=== PATIENT | female | born 1985 | race Hispanic/Latino ===

== ENCOUNTER 2017-04-21 23:19 | Emergency (ER) | payer SELFPAY ==
[~2017-04-21] VITALS: Ht 165.1 cm; Wt 86.2 kg
[~2017-04-21 23:19] MED LIST: HYDR-3812 PO; IBUP-1773 PO; PNV91TAB3 PO
[2017-04-21] MEDS ORDERED: RT-ALBUTEROL/IPRATROPIUM 3 ML (DUONEB) VIAL INH ONE (23:45)
[2017-04-22] MEDS ORDERED: RX-ALBUTEROL INHALER (VENTOLIN HFA) 18 GM IH STA (00:39)
[2017-04-22] MEDS ORDERED: predniSONE 20 MG TAB PO ONE (00:45)
--- NOTE | 2017-04-22 00:56 | ED Respiratory ---
General Chief Complaint: Respiratory Problems Stated Complaint: SOA Nursing Triage Note: PT TO ED 7 W/ S.O. FOR C/O SOB ONSET YESTERDAY AFTER CLEANING. S.O. REPORTS THIS HAPPENS WHEN SHE CLEANS OR IS AROUND POLLEN. NO OTHER C/O VOICED Source: patient Exam Limitations: language barrier History of Present Illness Time seen by provider: 00:27 Initial Comments Here with report of shortness of air that started yesterday after cleaning. She does have this occasionally occur with irritants such as pollen or cleaning agents. Denies fever or chills. Denies vomiting or chest pain. Timing/Duration: yesterday, getting worse Severity: moderate Prior Episodes/Possible Cause: allergen exposure, irritant gases exposure Modifying Factors: Worse With Activity, Improves With Rest Associated Symptoms: No chest pain/soreness, cough, No fever/chills, nasal congestion, shortness of breath, wheezing Allergies and Home Medications Allergies Coded Allergies: No Known Drug Allergies (Unverified , 05/18/16) Home Medications Hydrocodone/Acetaminophen 1 Each Tablet, 1-2 TAB PO Q4H PRN for PAIN, #30 Ref 0 Prescribed by: JAMILA GRIJALVA on 05/19/16 0846 Ibuprofen 600 Mg Tablet, 600 MG PO Q6H PRN for PAIN, #60 Ref 0 Prescribed by: JAMILA GRIJALVA on 05/19/16 0846 Pnv95/Ferrous Fumarate/FA 1 Each Tablet, 1 EACH PO DAILY, (Reported) Constitutional: see HPI, No chills, No fever EENTM: no symptoms reported Respiratory: cough, short of breath, wheezing Cardiovascular: no symptoms reported Gastrointestinal: no symptoms reported Musculoskeletal: no symptoms reported Psychiatric/Neurological: No Symptoms Reported Past Qrmlpkn-Jizhmv-Zxnekq Hx Patient Social History Alcohol Use: Denies Use Recreational Drug Use: No Smoking Status: Never a Smoker Recent Foreign Travel: No Contact w/Someone Who Travel: No Recent Infectious Disease Expo: No Recent Hopitalizations: No Immunizations Up To Date Tetanus Booster (TDap): Less than 5yrs PED Vaccines UTD: No Seasonal Allergies Seasonal Allergies: No Surgeries HX Surgeries: No Respiratory Hx Respiratory Disorders: Yes Respiratory Disorders: Asthma Cardiovascular Hx Cardiac Disorders: No Neurological Hx Neurological Disorders: No Reproductive System Hx Reproductive Disorders: No Sexually Transmitted Disease: No HIV/AIDS: No Genitourinary Hx Genitourinary Disorders: No Gastrointestinal Hx Gastrointestinal Disorders: No Musculoskeletal Hx Musculoskeletal Disorders: No Endocrine Hx Endocrine Disorders: No HEENT HX ENT Disorders: No Cancer Hx Cancer: No Psychosocial Hx Psychiatric Problems: No Integumentary HX Skin/Integumentary Disorder: No Blood Transfusions Hx Blood Disorders: No Adverse Reaction to a Blood Tr: No Reviewed Nursing Assessment Reviewed/Agree w Nursing PMH: Yes Family Medical History Significant Family History: No Pertinent Family Hx Family Medial History: Patient reports no known family medical history. Physical Exam Vital Signs Vital Sign - Last 12Hours 04/21/17 23:24 Temp 98.6 Pulse 113 Resp 20 Pulse Ox 96 O2 Delivery Room Air Capillary Refill : Less Than 3 Seconds General Appearance: WD/WN, no apparent distress HEENT: PERRL/EOMI, pharyngeal erythema (mild), other (moderate bilateral nasal congestion) Neck: full range of motion, supple Respiratory: no respiratory distress, no accessory muscle use, wheezing (few scattered) Cardiovascular: regular rate, rhythm, no murmur Gastrointestinal: non tender, soft Neurologic/Psychiatric: alert, oriented x 3 Skin: normal color, warm/dry Progress/Results/Core Measures Results/Orders My Orders Orders - KEI CORBIN MD Albuterol/Ipra Inhalation Soln (Duoneb I (04/21/17 23:45) Svn Sm Volume Nebulizer Rt-Rfs (04/21/17 23:33) Prednisone Tablet (Deltasone Tablet) (04/22/17 00:45) Rx-Albuterol Inhaler (Rx-Ventolin Hfa) (04/22/17 00:39) Medications Given in ED Current Medications Medications Dose Ordered Sig/Vandana Route Start Time Stop Time Status Last Admin Dose Admin Albuterol/ Ipratropium 3 ml ONCE ONCE INH 04/21/17 23:45 04/21/17 23:46 DC 04/21/17 23:57 3 ML Vital Signs/I&O Vital Sign - Last 12Hours 04/21/17 04/22/17 23:24 00:01 Temp 98.6 Pulse 113 Resp 20 B/P (MAP) Pulse Ox 96 95 O2 Delivery Room Air Room Air Progress Note : Progress Note Seen and evaluated. Duo neb ordered. This did markedly improve her symptoms. Prednisone 40 mg by mouth given. Albuterol inhaler go pack given. Discharged home with return precautions. Patient verbalize understanding instructions and agreement with plan. Departure Impression Impression: Primary Impression: Allergic bronchitis Qualified Codes: J45.20 - Mild intermittent asthma, uncomplicated Additional Impression: Seasonal allergies Qualified Codes: J30.2 - Other seasonal allergic rhinitis Disposition: HOME, SELF-CARE Condition: Improved Departure-Patient Inst. Decision time for Depature: 00:58 Referrals: JAMILA GRIJALVA MD (PCP/Family) Primary Care Physician Patient Instructions: Asthma, Adult (DC) Add. Discharge Instructions: All discharge instructions reviewed with patient and/or family. Voiced understanding. Take medications as directed. You may take Claritin or the generic loratadine 1 tablet daily as needed for allergy symptoms. You may use albuterol inhaler 2 puffs every 4 hours as needed for wheezing. Follow-up with your DrLori in a few days for recheck. Return for worsening, fever, vomiting, weakness, breathing problems or other concerns as needed. Scripts Prednisone (Prednisone) 20 Mg Tab 40 MG PO DAILY, #8 TAB 0 Refills Prov: KEI CORBIN MD 04/22/17 KEI CORBIN MD Apr 22, 2017 00:56
[2017-04-22] MEDS ORDERED: PRD20T PO (00:59)
[2017-04-22 01:05] VITALS: BP 131/82
== END 2017-04-22 01:05 | disposition home or self-care (01) ==
LOC: EDUNIT# 23:19 → ER 23:23
DX: J45.909 Unspecified asthma, uncomplicated (principal)
CPT/HCPCS: 94640; 99283

== ENCOUNTER → 2017-12-25 | Outpatient (CLI) | payer SELFPAY ==
[~2017-12-25] MED LIST changes: +ACHD5005 PO; -HYDR-3812 PO; +PRD20T PO
--- NOTE | 2017-12-25 17:48 | Diagnostic Imaging Report ---
PROCEDURE: US OB SINGLE FETUS <14 WKS. TECHNIQUE: Multiple real-time grayscale images were obtained over the gravid uterus in various projections. INDICATION: dating. There is an intrauterine gestational sac containing a pole. [place]-rump length measurement is approximately 5.3 cm consistent with 12 weeks 0 day gestation. heart rate was recorded at 155 beats per minute. No perigestational sac hemorrhage is detected. Ovaries were obscured by bowel gas. IMPRESSION: Single live IUP approximately 12 weeks 0 day gestational age. The estimated date of confinement sonographically is 07/09/2018. Dictated by: Dictated on workstation # [id number]
== END ==
LOC: RAD 15:40
PROVIDERS: ATTEND Family Medicine
DX: Z34.81 Encounter for supervision of other normal pregnancy, first trimester (principal); Z3A.12 12 weeks gestation of pregnancy
CPT/HCPCS: 76801

== ENCOUNTER → 2018-02-28 | Outpatient (CLI) | payer OTHER ==
[~2018-02-28] MED LIST changes: +BECL8.7A7 IH; +FEXO-46 PO; +PRD10T PO; +RT-ALBUINH IH
--- NOTE | 2018-02-28 18:06 | Diagnostic Imaging Report ---
INDICATION: Second trimester care. TECHNIQUE: Multiple real-time grayscale images were obtained over the gravid uterus. COMPARISON: None. FINDINGS: The patient's gestational age based on prior ultrasound is 21 weeks and 2 days. Today's biometrical measurements correspond to 21 weeks and 0 days. This is compatible with appropriate interval growth when compared to the prior exam. The heart rate is appropriate at 139 beats per minute. The placenta is located posteriorly without evidence of a previa. Amniotic fluid volume appears appropriate. The intracranial contents appear unremarkable. There is no ventriculomegaly. Four-chamber view of the heart appears normal. Stomach bubble demonstrated. There is no evidence of hydronephrosis. Bladder is unremarkable. There is a three-vessel cord with a normal cord insertion. There was limited visualization of the spine due to current positioning. IMPRESSION: 1. Single live intrauterine gestation demonstrating appropriate interval growth from initial ultrasound. Cardiac motion and the amniotic fluid index are appropriate. The placenta is located posteriorly without evidence of a previa. Today's anatomic survey is unremarkable. It should, however, be noted that there was incomplete evaluation of the spine due to the current positioning. Biometrical measurements are as follows: Biparietal 4.71 cm, age 20 weeks 2 days. Head circumference 18.02 cm, age 20 weeks 4 days. Abdominal circumference 17.05 cm, age 22 weeks 1 days. Femur length 3.43 cm, age 20 weeks 6 days. Sonographic estimate age: 21 weeks 0 days. Sonographic estimated date of delivery: 07/11/2018. Estimated Weight: 415 gm (+/- 61 gm). LMP percentile: 46%. heart rate: 139 beats per minute. number: 1 of 1. Dictated by: Dictated on workstation # [id number]
== END ==
LOC: RAD 17:18
PROVIDERS: ATTEND Family Medicine
DX: Z34.92 Encounter for supervision of normal pregnancy, unspecified, second trimester (principal); Z3A.21 21 weeks gestation of pregnancy
CPT/HCPCS: 76805

== ENCOUNTER 2018-03-19 20:53 | Emergency (ER) | payer OTHER ==
[~2018-03-19] VITALS: Ht 167.6 cm; Wt 81.6 kg
[~2018-03-19 20:53] MED LIST changes: -BECL8.7A7 IH; -FEXO-46 PO; -PRD10T PO; -RT-ALBUINH IH
[2018-03-19] MEDS ORDERED: methylPREDNISolone 125 MG (Solu-MEDROL) VIAL IV STA (21:28)
[2018-03-19] MEDS ORDERED: DEXAMETHASONE 4 MG/ML SDV (DECADRON) IH ONE (21:30)
[2018-03-19] MEDS ORDERED: RT-ALBUTEROL/IPRATROPIUM 3 ML (DUONEB) VIAL INH ONE (21:30)
[2018-03-19] MEDS ORDERED: BECL8.7A7 IH (21:34)
[2018-03-19] MEDS ORDERED: FEXO-46 PO (21:34)
[2018-03-19] MEDS ORDERED: RT-ALBUINH IH (21:34)
--- NOTE | 2018-03-19 21:50 | ED Respiratory ---
General Chief Complaint: Respiratory Problems Stated Complaint: TROUBLE BREATHING Nursing Triage Note: pt presents to ed with complaints of increased soa starting at 1000 today. Pt reports she was seen at [facility] today and prescribed 2 inhalers and allergy medication Source: motor vehicle parts interpreter (MALE S.O. IS PROVIDER RELATIONS CONSULTANT) Exam Limitations: language barrier (PT DOES NOT SPEAK ETHIOPIAN), other History of Present Illness Date Seen by Provider: March 19, 2018 Time Seen by Provider: 21:25 Initial Comments PT ARRIVES VIA POV FROM HOME C/O SHORTNESS OF BREATH SINCE 10:00 AM TODAY, BUT HAS HAD PROBLEM FOR 1-2 WEEKS WAS SEEN AT [facility] LAST WEEK FOR THIS PROBLEM AND WAS PRESCRIBED STEROIDS AND WAS DOING WELL FOR 3-4 DAYS, THEN SYMPTOMS RETURNED WENT TO [facility] THIS EVENING FOR THIS PROBLEM AND WAS PRESCRIBED ALBUTEROL INHALER AND QVAR INHALER--NO SPACERS USED THESE AT 1800 TONIGHT WITHOUT IMPROVEMENT HAS HAD SLIGHT, OCCASIONAL NON-PRODUCTIVE COUGH HAS SLIGHT CHEST PAIN NO FEVER/SWEATS/CHILLS NO SWELLING IN LEGS/ FEET OR PAIN IN CALVES PT IS APPROXIMATELY 24 WEEKS --STATES EDC IS 07/09/18 NO PROBLEMS WITH THIS OTHERWISE PT IS AB0 PT IS NON-SMOKER AND NO SECOND HAND SMOKE MALE S.O. STATES THAT SHE WAS DX WITH ASTHMA 3-4 YEARS AGO IN [place], BUT HAS NOT BEEN ON MEDICATION FOR IT. PCP: DR DAINA AT [facility] Allergies and Home Medications Allergies Coded Allergies: No Known Drug Allergies (Unverified , 05/18/16) Home Medications Albuterol Sulfate 1 Puff Puff, 2 PUFF IH Q4H, (Reported) 1 PUFF = 90 MCG Hydrocodone Bit/Acetaminophen 1 Each Tablet, 1-2 TAB PO Q4H PRN for PAIN Prescribed by: JAMILA GRIJALVA on 05/19/16 0846 Ibuprofen 600 Mg Tablet, 600 MG PO Q6H PRN for PAIN Prescribed by: JAMILA GRIJALVA on 05/19/16 0846 Pnv95/Ferrous Fumarate/FA 1 Each Tablet, 1 EACH PO DAILY, (Reported) Prednisone 20 Mg Tab, 40 MG PO DAILY Prescribed by: KEI CORBIN on 04/22/17 0059 Prednisone 10 Mg Tab, 40 MG PO DAILY Prescribed by: BRYN ORDAZ on 03/19/18 8538 Patient Home Medication List Home Medication List Reviewed: Yes Review of Systems Constitutional: no symptoms reported EENTM: no symptoms reported Respiratory: see HPI, cough, short of breath Cardiovascular: see HPI, chest pain Gastrointestinal: no symptoms reported Genitourinary: no symptoms reported : Yes Expected Date of Delivery: Jul 09, 2018 Musculoskeletal: no symptoms reported Skin: no symptoms reported Psychiatric/Neurological: No Symptoms Reported Hematologic/Lymphatic: No Symptoms Reported Immunological/Allergic: see HPI (SEASONAL ALLERGIES) Past Elpdpia-Ujummu-Cvkgao Hx Patient Social History Alcohol Use: Denies Use Recreational Drug Use: No Smoking Status: Never a Smoker Recent Foreign Travel: No Contact w/Someone Who Travel: No Recent Infectious Disease Expo: No Recent Hopitalizations: No Physical Abuse: No Sexual Abuse: No Mistreated: No Fear: No Immunizations Up To Date Tetanus Booster (TDap): Less than 5yrs PED Vaccines UTD: No Seasonal Allergies Seasonal Allergies: No Past Medical History Surgeries: No Respiratory: Yes Asthma Currently Using CPAP: No Currently Using BIPAP: No Cardiac: No Neurological: No Hx : 4 Hx Para: 3 Hx Total # of Abortions (Sp): 0 Reproductive Disorders: No Sexually Transmitted Disease: No HIV/AIDS: No Genitourinary: No Gastrointestinal: No Musculoskeletal: No Endocrine: No HEENT: No Cancer: No Psychosocial: No Nursing Suicide Risk Score: 0 Integumentary: No Blood Disorders: No Adverse Reaction/Blood Tranf: No Family Medical History Patient reports no known family medical history. No Pertinent Family Hx Physical Exam Vital Signs Vital Signs - First Documented 03/19/18 03/19/18 21:26 21:40 Temp 97.2 Pulse 112 Resp 20 B/P (MAP) 121/72 (88) Pulse Ox 94 O2 Delivery Nasal Cannula O2 Flow Rate 2.00 Capillary Refill : Less Than 3 Seconds General Appearance: WD/WN, no apparent distress, other (PT SMILING, SITTING QUIETLY, DOES NOT APPEAR TO BE IN ANY DISCOMFORT OR DISTRESS) HEENT: PERRL/EOMI, normal ENT inspection, TMs normal, pharynx normal Neck: non-tender, full range of motion, supple, normal inspection Respiratory: chest non-tender, no respiratory distress, no accessory muscle use , wheezing (FAINT DIFFUSE EXPIRATORY WHEEZING BILATERALLY) Cardiovascular: normal peripheral pulses, regular rate, rhythm, no edema, no JVD, no murmur Gastrointestinal: normal bowel sounds, non tender, soft, other (GRAVID UTERUS 4 FB'S ABOVE UMBILICUS) Extremities: normal range of motion, non-tender, normal inspection, no pedal edema, no calf tenderness, normal capillary refill Neurologic/Psychiatric: sales agent II-XII nml as tested, no motor/sensory deficits, alert, normal mood/affect, oriented x 3 Skin: normal color, warm/dry; No rash Progress/Results/Core Measures Suspected Sepsis Recent Fever Within 48 Hours: No Infection Criteria Present: None New/Unexplained Altered Menta: No Sepsis Screen: No Definite Risk SIRS Temperature:97.2 Pulse: 112 Respiratory Rate: 20 Laboratory Tests 03/19/18 21:42: White Blood Count 17.3H Blood Pressure 121 /72 Mean: 88 Laboratory Tests 03/19/18 21:42: Creatinine 0.50L, INR Comment 1.0, Platelet Count 231 Results/Orders Lab Results Laboratory Tests Test 03/19/18 21:42 Range/Units White Blood Count 17.3 H 4.3-11.0 10^3/uL Red Blood Count 4.62 4.35-5.85 10^6/uL Hemoglobin 13.3 11.5-16.0 G/DL Hematocrit 38 35-52 % Mean Corpuscular Volume 82 80-99 FL Mean Corpuscular Hemoglobin 29 25-34 PG Mean Corpuscular Hemoglobin Concent 35 32-36 G/DL Red Cell Distribution Width 12.7 10.0-14.5 % Platelet Count 231 130-400 10^3/uL Mean Platelet Volume 11.0 H 7.4-10.4 FL Neutrophils (%) (Auto) 83 H 42-75 % Lymphocytes (%) (Auto) 10 L 12-44 % Monocytes (%) (Auto) 4 0-12 % Eosinophils (%) (Auto) 3 0-10 % Basophils (%) (Auto) 0 0-10 % Neutrophils # (Auto) 14.4 H 1.8-7.8 X 10^3 Lymphocytes # (Auto) 1.7 1.0-4.0 X 10^3 Monocytes # (Auto) 0.6 0.0-1.0 X 10^3 Eosinophils # (Auto) 0.6 H 0.0-0.3 10^3/uL Basophils # (Auto) 0.0 0.0-0.1 10^3/uL Neutrophils % (Manual) 71 % Lymphocytes % (Manual) 20 % Monocytes % (Manual) 3 % Eosinophils % (Manual) 2 % Basophils % (Manual) 0 % Band Neutrophils 4 % Blood Morphology Comment NORMAL Prothrombin Time 13.5 12.2-14.7 SEC INR Comment 1.0 0.8-1.4 Activated Partial Thromboplast Time 28 24-35 SEC Sodium Level 138 135-145 MMOL/L Potassium Level 3.5 L 3.6-5.0 MMOL/L Chloride Level 107 98-107 MMOL/L Carbon Dioxide Level 18 L 21-32 MMOL/L Anion Gap 13 5-14 MMOL/L Blood Urea Nitrogen 6 L 7-18 MG/DL Creatinine 0.50 L 0.60-1.30 MG/DL Estimat Glomerular Filtration Rate > 60 BUN/Creatinine Ratio 12 Glucose Level 93 70-105 MG/DL Calcium Level 9.1 8.5-10.1 MG/DL Troponin I < 0.30 <0.30 NG/ML B-Type Natriuretic Peptide < 10.0 <100.0 PG/ML My Orders Orders - BRYN ORDAZ DO Saline Lock/Iv-Start (03/19/18 21:28) O2 (03/19/18 21:28) Monitor-Rhythm Ecg Trace Only (03/19/18 21:28) Basic Metabolic Panel (03/19/18 21:28) BNP (03/19/18 21:28) Cbc With Automated Diff (03/19/18 21:28) Protime With Inr (03/19/18 21:28) Partial Thromboplastin Time (03/19/18 21:28) Troponin I (03/19/18 21:28) Albuterol/Ipra Inhalation Soln (Duoneb I (03/19/18 21:30) Dexamethasone Injection (Decadron Inject (03/19/18 21:30) Methylprednisolone Sod Succ (Solu-Medrol (03/19/18 21:28) Svn Small Volume Nebulizer (03/19/18 21:28) Ekg Tracing (03/19/18 21:28) Heart Tones (03/19/18 21:44) Manual Differential (03/19/18 21:42) Medications Given in ED Current Medications Medications Dose Ordered Sig/Vandana Route Start Time Stop Time Status Last Admin Dose Admin Albuterol/ Ipratropium 3 ml ONCE ONCE INH 03/19/18 21:30 03/19/18 21:31 DC 03/19/18 22:00 3 ML Dexamethasone Sodium Phosphate 20 mg ONCE ONCE IH 03/19/18 21:30 03/19/18 21:31 DC 03/19/18 22:00 20 MG Vital Signs/I&O 03/19/18 03/19/18 03/19/18 21:26 21:40 22:00 Temp 97.2 Pulse 112 Resp 20 B/P (MAP) 121/72 (88) Pulse Ox 94 96 95 O2 Delivery Nasal Cannula Nasal Cannula O2 Flow Rate 2.00 2.00 Capillary Refill : Less Than 3 Seconds Blood Pressure Mean: 88 Progress Note : Progress Note FHR--140'S -160--WITH AVERAGE OF 150 WHEEZING RESOLVED WITH NEB TREATMENT AND PT STATES SHE FEELS BETTER RT STAFF DID MUCH TEACHING ON INHALER USE AND GAVE SPACER TO PT AND INSTRUCTED ON USE PT HAS NOT BEEN USING INHALER CORRECTLY--PT HAS NOT BEEN FULLY PUSHING DOWN ON INHALER, AND ESSENTIALLY HAS NOT BEEN GETTING ANY MEDICATION WITH HER ATTEMPTS TO USE THE DEVICES. PT AND MALE S.O. STATE THEY FEEL COMFORTABLE ON PROPER USE OF DEVICES PRIOR TO DISMISSAL ECG Initial ECG Impression Date: March 19, 2018 Initial ECG Impression Time: 21:38 Initial ECG Rate: 103 Initial ECG Rhythm: Normal Sinus (LAFB) Initial ECG Comparisson: No Previous ECG Available Departure Impression Primary Impression: Asthma affecting in second trimester Disposition: 01 HOME, SELF-CARE Condition: Improved Departure-Patient Inst. Referrals: SUNDAY DIANA MD (PCP/Family) Primary Care Physician Patient Instructions: Asthma, Adult (DC) Add. Discharge Instructions: USE ALBUTEROL INHALER 2 PUFFS EVERY 4 HOURS NEEDED FOR BREATHING USE QVAR TWICE A DAY EVERY DAY USE SPACER AT ALL TIMES, WHEN USING INHALERS FOLLOW UP WITH DR. DIANA IN 1-2 DAYS FOR FURTHER RETURN TO ER IF WORSE All discharge instructions reviewed with patient and/or family. Voiced understanding. Scripts Prednisone (Prednisone) 10 Mg Tab 40 MG PO DAILY, #12 TAB Prov: BRYN ORDAZ DO 03/19/18 BRYN ORDAZ DO March 19, 2018 21:49
[2018-03-19 21:53] LABS: BASOPHILS % (AUTO) 0 % (0-10); EOSINOPHILS # (AUTO) 0.6 10^3/uL (0.0-0.3); EOSINOPHILS % (AUTO) 3 % (0-10); HEMATOCRIT 38 % (35-52); HEMOGLOBIN 13.3 G/DL (11.5-16.0); LYMPHOCYTES # (AUTO) 1.7 X 10^3 (1.0-4.0); LYMPHOCYTES % (AUTO) 10 % (12-44); MEAN CORPUSCULAR HEMOGLOBIN 29 PG (25-34); MEAN CORPUSCULAR HGB CONC 35 G/DL (32-36); MEAN CORPUSCULAR VOLUME 82 FL (80-99); MONOCYTES # (AUTO) 0.6 X 10^3 (0.0-1.0); MONOCYTES % (AUTO) 4 % (0-12); NEUTROPHILS # (AUTO) 14.4 X 10^3 (1.8-7.8); NEUTROPHILS % (AUTO) 83 % (42-75); PLATELET COUNT 231 10^3/uL (130-400); RED BLOOD COUNT 4.62 10^6/uL (4.35-5.85); RED CELL DISTRIBUTION WIDTH 12.7 % (10.0-14.5); WHITE BLOOD COUNT 17.3 10^3/uL (4.3-11.0)
[2018-03-19 22:02] LABS: PROTHROMBIN TIME PATIENT 13.5 SEC (12.2-14.7)
[2018-03-19 22:06] LABS: BUN/CREATININE RATIO 12; CALCIUM 9.1 MG/DL (8.5-10.1); CARBON DIOXIDE 18 MMOL/L (21-32); CHLORIDE 107 MMOL/L (98-107); GFR ESTIMATED > 60; GLUCOSE 93 MG/DL (70-105); POTASSIUM 3.5 MMOL/L (3.6-5.0); SODIUM 138 MMOL/L (135-145)
[2018-03-19 22:14] LABS: BAND NEUTROPHILS 4 %; BASOPHILS % (MANUAL) 0 %; EOSINOPHILS % (MANUAL) 2 %; LYMPHOCYTES % (MANUAL) 20 %; MONOCYTES % (MANUAL) 3 %; NEUTROPHILS % (MANUAL) 71 %
[2018-03-19 22:15] LABS: RBC MORPH NORMAL
[2018-03-19] MEDS ORDERED: PRD10T PO (22:28)
[2018-03-19 22:45] VITALS: BP 129/65
--- OUTSIDE RECORDS SUMMARY | 2018-03-19 23:05 | XMS REPORT | Continuity of Care Document ---
Author Author [facility] Organization [facility] Address Unknown Phone Unavailable Allergies Active Description Code Type Severity Reaction Onset Reported/Identified Relationship to Patient Clinical Status Yes No Known Drug Allergies [id number] Drug Allergy Unknown N/A 05/18/2016 Medications There is no data. Problems Date Dx Coded Attending Type Code Diagnosis Diagnosed By 12/07/2015 CLARISA KATHRYN L INDUCTION FURNACE OPERATOR Ot O99.89 12/07/2015 CLARISA KATHRYN L INDUCTION FURNACE OPERATOR Ot R10.9 12/07/2015 CLARISA, KATHRYN L INDUCTION FURNACE OPERATOR Ot Z3A.00 12/29/2015 GORGE COMBS A INDUCTION FURNACE OPERATOR Ot Z34.82 12/29/2015 HOLLY COMBSY A INDUCTION FURNACE OPERATOR Ot Z36 01/05/2016 MCKENNA, KATHRYN L INDUCTION FURNACE OPERATOR Ot O99.89 01/05/2016 MCKENNA, KATHRYN L INDUCTION FURNACE OPERATOR Ot R10.9 01/05/2016 MCKENNA, KATHRYN L INDUCTION FURNACE OPERATOR Ot Z3A.00 01/05/2016 MIROSLAVA COMBSSAY A INDUCTION FURNACE OPERATOR Ot Z34.82 01/05/2016 MIROSLAVA COMBSSAY A INDUCTION FURNACE OPERATOR Ot Z36 01/05/2016 MCKENNA, KATHRYN L INDUCTION FURNACE OPERATOR Ot O99.89 01/05/2016 MCKENNA, KATHRYN L INDUCTION FURNACE OPERATOR Ot R10.9 01/05/2016 MCKENNA, KATHRYN L INDUCTION FURNACE OPERATOR Ot Z3A.00 01/05/2016 MIROSLAVA COMBSSAY A INDUCTION FURNACE OPERATOR Ot Z34.82 01/05/2016 MIROSLAVA COMBSSAY A INDUCTION FURNACE OPERATOR Ot Z36 01/05/2016 MCKENNA, KATHRYN L INDUCTION FURNACE OPERATOR Ot O99.89 01/05/2016 MCKENNA, KATHRYN L INDUCTION FURNACE OPERATOR Ot R10.9 01/05/2016 MCKENNA, KATHRYN L INDUCTION FURNACE OPERATOR Ot Z3A.00 01/06/2016 GORGE COMBS A INDUCTION FURNACE OPERATOR Ot E07.89 01/06/2016 GORGE COMBS INDUCTION FURNACE OPERATOR Ot R79.89 04/04/2016 CLARISA KATHRYN L INDUCTION FURNACE OPERATOR Ot O99.89 OTH DISEASES AND CONDITIONS COMPL PREG/C 04/04/2016 KATHRYN MCKENNA INDUCTION FURNACE OPERATOR Ot R10.9 UNSPECIFIED ABDOMINAL PAIN 04/04/2016 CLARISA KATHRYN L INDUCTION FURNACE OPERATOR Ot Z3A.00 WEEKS OF GESTATION OF NOT SPEC 04/04/2016 GORGE COMBS A INDUCTION FURNACE OPERATOR Ot Z34.82 ENCOUNTER FOR SUPRVSN OF NORMAL PREGNANC 04/04/2016 GORGE COMBS INDUCTION FURNACE OPERATOR Ot Z36 ENCOUNTER FOR SCREENING OF MOT 04/04/2016 GORGE COMBS INDUCTION FURNACE OPERATOR Ot E07.89 OTHER SPECIFIED DISORDERS OF THYROID 04/04/2016 GORGE COMBS A INDUCTION FURNACE OPERATOR Ot R79.89 OTHER SPECIFIED ABNORMAL FINDINGS OF BLO 04/04/2016 GORGE COMBS INDUCTION FURNACE OPERATOR Ot Z34.82 ENCOUNTER FOR SUPRVSN OF NORMAL PREGNANC 04/04/2016 GORGE COMBS INDUCTION FURNACE OPERATOR Ot Z36 ENCOUNTER FOR SCREENING OF MOT 04/04/2016 GORGE COMBS INDUCTION FURNACE OPERATOR Ot E07.89 OTHER SPECIFIED DISORDERS OF THYROID 04/04/2016 GORGE COMBS A INDUCTION FURNACE OPERATOR Ot R79.89 OTHER SPECIFIED ABNORMAL FINDINGS OF BLO 05/19/2016 CLARISA KATHRYN L INDUCTION FURNACE OPERATOR Ot O99.89 OTH DISEASES AND CONDITIONS COMPL PREG/C 05/19/2016 KATHRYN MCKENNA INDUCTION FURNACE OPERATOR Ot R10.9 UNSPECIFIED ABDOMINAL PAIN 05/19/2016 KATHRYN MCKENNA INDUCTION FURNACE OPERATOR Ot Z3A.00 WEEKS OF GESTATION OF NOT SPEC 05/19/2016 GORGE COMBS INDUCTION FURNACE OPERATOR Ot Z34.82 ENCOUNTER FOR SUPRVSN OF NORMAL PREGNANC 05/19/2016 GORGE COMBS A INDUCTION FURNACE OPERATOR Ot Z36 ENCOUNTER FOR SCREENING OF MOT 05/19/2016 GORGE COMBS A INDUCTION FURNACE OPERATOR Ot E07.89 OTHER SPECIFIED DISORDERS OF THYROID 05/19/2016 GORGE COMBS A INDUCTION FURNACE OPERATOR Ot R79.89 OTHER SPECIFIED ABNORMAL FINDINGS OF BLO 05/19/2016 RUDI CHILDS, JAMILA Hansen Ot O70.1 SECOND DEGREE PERINEAL LACERATION DURING 05/19/2016 RUDI CHILDS, JAMILA Hansen Ot Z37.0 SINGLE LIVE 05/19/2016 RUDI CHILDS, JAMILA Hansen Ot Z3A.39 39 WEEKS GESTATION OF 07/24/2016 CLARISA KATHRYN L INDUCTION FURNACE OPERATOR Ot O99.89 OTH DISEASES AND CONDITIONS COMPL PREG/C 07/24/2016 KATHRYN MCKENNA L INDUCTION FURNACE OPERATOR Ot R10.9 UNSPECIFIED ABDOMINAL PAIN 07/24/2016 KATHRYN MCKENNA INDUCTION FURNACE OPERATOR Ot Z3A.00 WEEKS OF GESTATION OF NOT SPEC 07/24/2016 GORGE COMBS INDUCTION FURNACE OPERATOR Ot Z34.82 ENCOUNTER FOR SUPRVSN OF NORMAL PREGNANC 07/24/2016 GORGE COMBS INDUCTION FURNACE OPERATOR Ot Z36 ENCOUNTER FOR SCREENING OF MOT 07/24/2016 GORGE COMBS A INDUCTION FURNACE OPERATOR Ot E07.89 OTHER SPECIFIED DISORDERS OF THYROID 07/24/2016 GORGE COMBS A INDUCTION FURNACE OPERATOR Ot R79.89 OTHER SPECIFIED ABNORMAL FINDINGS OF BLO 04/22/2017 KEI CORBIN MD, Ot J45.909 UNSPECIFIED ASTHMA, UNCOMPLICATED 04/22/2017 KEI CORBIN MD Ot R06.02 SHORTNESS OF BREATH 04/22/2017 KATHRYN MCKENNA INDUCTION FURNACE OPERATOR Ot O99.89 OTH DISEASES AND CONDITIONS COMPL PREG/C 04/22/2017 KATHRYN MCKENNA INDUCTION FURNACE OPERATOR Ot R10.9 UNSPECIFIED ABDOMINAL PAIN 04/22/2017 KATHRYN MCKENNA INDUCTION FURNACE OPERATOR Ot Z3A.00 WEEKS OF GESTATION OF NOT SPEC 04/22/2017 GORGE COMBS INDUCTION FURNACE OPERATOR Ot Z34.82 ENCOUNTER FOR SUPRVSN OF NORMAL PREGNANC 04/22/2017 GORGE COMBS INDUCTION FURNACE OPERATOR Ot Z36 ENCOUNTER FOR SCREENING OF MOT 04/22/2017 GORGE COMBS INDUCTION FURNACE OPERATOR Ot E07.89 OTHER SPECIFIED DISORDERS OF THYROID 04/22/2017 GORGE COMBS INDUCTION FURNACE OPERATOR Ot R79.89 OTHER SPECIFIED ABNORMAL FINDINGS OF BLO 04/23/2017 KEI CORBIN MD, Ot J45.909 UNSPECIFIED ASTHMA, UNCOMPLICATED 04/23/2017 KEI CORBIN MD Ot R06.02 SHORTNESS OF BREATH 12/25/2017 KATHRYN MCKENNA L INDUCTION FURNACE OPERATOR Ot O99.89 OTH DISEASES AND CONDITIONS COMPL PREG/C 12/25/2017 KATHRYN MCKENNA INDUCTION FURNACE OPERATOR Ot R10.9 UNSPECIFIED ABDOMINAL PAIN 12/25/2017 KATHRYN MCKENNA INDUCTION FURNACE OPERATOR Ot Z3A.00 WEEKS OF GESTATION OF NOT SPEC 12/25/2017 GORGE COMBS INDUCTION FURNACE OPERATOR Ot Z34.82 ENCOUNTER FOR SUPRVSN OF NORMAL PREGNANC 12/25/2017 GORGE COMBS INDUCTION FURNACE OPERATOR Ot Z36 ENCOUNTER FOR SCREENING OF MOT 12/25/2017 GORGE COMBS INDUCTION FURNACE OPERATOR Ot E07.89 OTHER SPECIFIED DISORDERS OF THYROID 12/25/2017 GORGE COMBS INDUCTION FURNACE OPERATOR Ot R79.89 OTHER SPECIFIED ABNORMAL FINDINGS OF BLO 12/26/2017 DIANA MD Ot Z34.81 ENCOUNTER FOR SUPRVSN OF NORMAL PREGNANC 12/26/2017 DIANA MD Ot Z3A.12 12 WEEKS GESTATION OF 02/15/2018 KATHRYN MCKENNA INDUCTION FURNACE OPERATOR Ot O99.89 OTH DISEASES AND CONDITIONS COMPL PREG/C 02/15/2018 KATHRYN MCKENNA INDUCTION FURNACE OPERATOR Ot R10.9 UNSPECIFIED ABDOMINAL PAIN 02/15/2018 KATHRYN MCKENNA INDUCTION FURNACE OPERATOR Ot Z3A.00 WEEKS OF GESTATION OF NOT SPEC 02/15/2018 GORGE COMBS INDUCTION FURNACE OPERATOR Ot Z34.82 ENCOUNTER FOR SUPRVSN OF NORMAL PREGNANC 02/15/2018 GORGE COMBS INDUCTION FURNACE OPERATOR Ot Z36 ENCOUNTER FOR SCREENING OF MOT 02/15/2018 GORGE COMBS INDUCTION FURNACE OPERATOR Ot E07.89 OTHER SPECIFIED DISORDERS OF THYROID 02/15/2018 GORGE COMBS INDUCTION FURNACE OPERATOR Ot R79.89 OTHER SPECIFIED ABNORMAL FINDINGS OF BLO 02/15/2018 DIANA MD Ot Z34.81 ENCOUNTER FOR SUPRVSN OF NORMAL PREGNANC 02/15/2018 DIANA MD Ot Z3A.12 12 WEEKS GESTATION OF 02/28/2018 KATHRYN MCKENNA INDUCTION FURNACE OPERATOR Ot O99.89 OTH DISEASES AND CONDITIONS COMPL PREG/C 02/28/2018 KATHRYN MCKENNA L INDUCTION FURNACE OPERATOR Ot R10.9 UNSPECIFIED ABDOMINAL PAIN 02/28/2018 KATHRYN MCKENNA INDUCTION FURNACE OPERATOR Ot Z3A.00 WEEKS OF GESTATION OF NOT SPEC 02/28/2018 GORGE COMBS INDUCTION FURNACE OPERATOR Ot Z34.82 ENCOUNTER FOR SUPRVSN OF NORMAL PREGNANC 02/28/2018 GORGE COMBS INDUCTION FURNACE OPERATOR Ot Z36 ENCOUNTER FOR SCREENING OF MOT 02/28/2018 GORGE COMBS INDUCTION FURNACE OPERATOR Ot E07.89 OTHER SPECIFIED DISORDERS OF THYROID 02/28/2018 GORGE COMBS INDUCTION FURNACE OPERATOR Ot R79.89 OTHER SPECIFIED ABNORMAL FINDINGS OF BLO 02/28/2018 DIANA MD Ot Z34.81 ENCOUNTER FOR SUPRVSN OF NORMAL PREGNANC 02/28/2018 DIANA MD Ot Z3A.12 12 WEEKS GESTATION OF 03/01/2018 DIANA MD Ot Z34.92 ENCNTR FOR SUPRVSN OF NORMAL PREG, UNSP, 03/01/2018 DIANA MD Ot Z3A.21 21 WEEKS GESTATION OF 03/04/2018 DIANA MD Ot Z34.92 ENCNTR FOR SUPRVSN OF NORMAL PREG, UNSP, 03/04/2018 DIANA MD Ot Z3A.21 21 WEEKS GESTATION OF Procedures Code Description Performed By Performed On [id number] REPAIR PERINEUM MUSCLE, OPEN APPROACH 05/18/2016 [id number] DELIVERY OF PRODUCTS OF CONCEPTION, EXTE 05/18/2016 Results Test Result Range Complete blood count (CBC) with automated white blood cell (WBC) differential - 05/19/16 06:40 Blood leukocytes automated count (number/volume) 11.0 10*3/uL 4.3-11.0 Blood erythrocytes automated count (number/volume) 4.28 10*6/uL 4.35-5.85 Venous blood hemoglobin measurement (mass/volume) 12.1 g/dL 11.5-16.0 Blood hematocrit (volume fraction) 35 % 35-52 Automated erythrocyte mean corpuscular volume 83 [foz_us] 80-99 Automated erythrocyte mean corpuscular hemoglobin (mass per erythrocyte) 28 pg 25-34 Automated erythrocyte mean corpuscular hemoglobin concentration measurement ( mass/volume) 34 g/dL 32-36 Automated erythrocyte distribution width ratio 12.9 % 10.0-14.5 Automated blood platelet count (count/volume) 193 10*3/uL 130-400 Automated blood platelet mean volume measurement 11.5 [foz_us] 7.4-10.4 Automated blood neutrophils/100 leukocytes 77 % 42-75 Automated blood lymphocytes/100 leukocytes 18 % 12-44 Blood monocytes/100 leukocytes 6 % 0-12 Automated blood eosinophils/100 leukocytes 0 % 0-10 Automated blood basophils/100 leukocytes 0 % 0-10 Blood neutrophils automated count (number/volume) 8.4 10*3 1.8-7.8 Blood lymphocytes automated count (number/volume) 1.9 10*3 1.0-4.0 Blood monocytes automated count (number/volume) 0.6 10*3 0.0-1.0 Automated eosinophil count 0.0 10*3/uL 0.0-0.3 Automated blood basophil count (count/volume) 0.0 10*3/uL 0.0-0.1 Encounters ACCT No. Visit Date/Time Discharge Status Pt. Type Provider Facility Loc./Unit Complaint [id number] 02/28/2018 17:18:00 02/28/2018 23:59:59 CLS Outpatient SUNDAY DIANA MD [facility] RAD Z34.92 CARE SECOND TRIMESTER [id number] 12/25/2017 15:40:00 12/25/2017 23:59:59 CLS Outpatient SUNDAY DIANA MD [facility] RAD Z34.80 NORMAL IN MULTIGRAVIDA [id number] 04/21/2017 23:23:00 04/22/2017 01:05:00 DIS Emergency KEI CORBIN MD [facility] ER SOA [id number] 05/18/2016 08:30:00 05/19/2016 13:30:00 DIS Inpatient JAMILA GRIJALVA MD [facility] LDRP CONTRACTIONS 39 WKS PREG [id number] 01/05/2016 10:33:00 01/05/2016 23:59:59 CLS Outpatient GORGE COMBS APRN [facility] RAD ABNORMAL T3 [id number] 12/23/2015 11:45:00 12/23/2015 23:59:59 CLS Outpatient GORGE COMBS APRN [facility] RAD DATING,ANATOMY [id number] 11/27/2015 11:42:00 11/27/2015 23:59:59 CLS Outpatient KATHRYN MCKENNA APRN [facility] LAB HCG QUANT
== END 2018-03-19 22:45 | disposition home or self-care (01) ==
LOC: EDUNIT# 20:53 → ER 20:56
DX: O99.512 Diseases of the respiratory system complicating pregnancy, second trimester (principal); J45.909 Unspecified asthma, uncomplicated; Z79.51 Long term (current) use of inhaled steroids; Z79.52 Long term (current) use of systemic steroids; Z3A.00 Weeks of gestation of pregnancy not specified
CPT/HCPCS: 36415; 80048; 83880; 84484; 85007; 85027; 85610; 85730; 93005; 93041; 94640; 94664; 96374

== ENCOUNTER → 2018-05-02 | Outpatient (CLI) | payer OTHER ==
[~2018-05-02] MED LIST changes: +BECL8.7A7 IH; +FEXO-46 PO; +PRD10T PO; +RT-ALBUINH IH
== END ==
LOC: LAB 08:18
PROVIDERS: ATTEND Family Medicine
DX: O99.810 Abnormal glucose complicating pregnancy (principal)
CPT/HCPCS: 36415; 82951; 82952; 82962

== ENCOUNTER → 2018-06-28 | Outpatient (CLI) | payer OTHER ==
[~2018-06-28] MED LIST changes: +IBUP-844 PO
--- NOTE | 2018-06-28 15:40 | Diagnostic Imaging Report ---
INDICATION: Followup spine and weight. TECHNIQUE: Multiple real-time grayscale images were obtained over the gravid uterus. COMPARISON: 02/28/2018. FINDINGS: There is a single live fetus in a variable presentation. heart rate was recorded at 136 beats per minute. Placenta is fundal. Amniotic fluid index is 10 cm. spine is grossly unremarkable. No definite complicating features are seen. Biometrical measurements are as follows: Biparietal 9.22 cm, age 37 weeks 4 days. Head circumference 32.19 cm, age 36 weeks 3 days. Abdominal circumference 33.65 cm, age 37 weeks 4 days. Femur length 6.84 cm, age 35 weeks 1 days. Sonographic estimate age: 36 weeks 5 days. Sonographic estimated date of delivery: 07/21/2018. Estimated Weight: 3043 gm (+/- 444 gm). LMP percentile: 26%. heart rate: 136 beats per minute. number: 1 of 1. IMPRESSION: Single live IUP approximately 37 weeks gestational age showing normal interval growth when compared with prior study. No complicating features are detected. Dictated by: Dictated on workstation # [id number]
== END ==
LOC: RAD 14:04
PROVIDERS: ATTEND Family Medicine
DX: Z36.89 Encounter for other specified antenatal screening (principal); Z3A.36 36 weeks gestation of pregnancy
CPT/HCPCS: 76816

== ENCOUNTER 2018-07-04 05:00 | Inpatient (IN) | payer OTHER ==
[2018-07-04] VITALS (68 sets, daily range): BP systolic 97–140; BP diastolic 53–75
[~2018-07-04] VITALS: Ht 166.4 cm; Wt 81.7 kg
[~2018-07-04 05:00] MED LIST changes: -IBUP-844 PO
[2018-07-04] MEDS ORDERED: NS IV 1000 ML 1,000 ML IV SCH (05:59)
[2018-07-04] MEDS ORDERED: OXYTOCIN/NORMAL SALINE 500 ML IV SCH (05:59)
[2018-07-04] MEDS ORDERED: NS IV 1000 ML 1,000 ML ONE (06:00)
[2018-07-04 06:42] LABS: BASOPHILS % (AUTO) 0 % (0-10); EOSINOPHILS # (AUTO) 0.3 10^3/uL (0.0-0.3); EOSINOPHILS % (AUTO) 3 % (0-10); HEMATOCRIT 37 % (35-52); HEMOGLOBIN 12.6 G/DL (11.5-16.0); LYMPHOCYTES # (AUTO) 1.6 X 10^3 (1.0-4.0); LYMPHOCYTES % (AUTO) 19 % (12-44); MEAN CORPUSCULAR HEMOGLOBIN 28 PG (25-34); MEAN CORPUSCULAR HGB CONC 34 G/DL (32-36); MEAN CORPUSCULAR VOLUME 82 FL (80-99); MEAN PLATELET VOLUME 11.3 FL (7.4-10.4); MONOCYTES # (AUTO) 0.4 X 10^3 (0.0-1.0); MONOCYTES % (AUTO) 5 % (0-12); NEUTROPHILS % (AUTO) 73 % (42-75); PLATELET COUNT 212 10^3/uL (130-400); RED BLOOD COUNT 4.54 10^6/uL (4.35-5.85); WHITE BLOOD COUNT 8.3 10^3/uL (4.3-11.0)
[2018-07-04] MEDS: D5 LR IV SOLUTION 1,000 ML IV SCH ×3 (06:45→22:42)
[2018-07-04] MEDS: CATHETER FLUSH 10 ML SYR IV SCH (07:23)
[2018-07-04 07:34] LABS: BILIRUBIN,URINE NEGATIVE (NEGATIVE); CLARITY,URINE CLEAR; COLOR,URINE YELLOW; GLUCOSE, URINE (UA) NEGATIVE (NEGATIVE); KETONES,URINE NEGATIVE (NEGATIVE); LEUKOCYTE ESTERASE ,URINE NEGATIVE (NEGATIVE); NITRITE,URINE NEGATIVE (NEGATIVE); PH,URINE 7 (5-9); PROTEIN,URINE NEGATIVE (NEGATIVE); UROBILINOGEN,URINE NORMAL (NORMAL)
[2018-07-04 07:57] LABS: BACTERIA,URINE FEW /HPF; RBC,URINE RARE /HPF; WBC,URINE RARE /HPF
--- NOTE | 2018-07-04 16:15 | History & Physical-OB ---
LEÓN GARCIA MEDICAL STUDENT 07/04/18 4:15pm: OB - Chief Complaint & HPI Date/Time Date of Admission: Date of Admission: Jul 04, 2018 at 05:36 Time Seen by Provider: 15:30 Chief Complaint/History OB-Reason for Admission/Chief: Induction of Labor Hx : 4 Hx Para: 3 Hx Last Menstrual Period: 10/05/2017 Estimated Date of Conception: 07/09/2018 Expected Date of Delivery: Jul 04, 2018 Gestational Age in Weeks: 38 Gestational Age in Days: 6 Indication for induction: other (GDM) Admission Nurse Assessment Rev: Yes History of Labs O+, Ab neg, Hayley, GC/Chyl neg, HIV/HepB/RPR NR GDM Allergies and Home Medications Allergies Coded Allergies: No Known Drug Allergies (Unverified , 05/18/16) Home Medications Albuterol Sulfate 1 Puff Puff, 2 PUFF IH Q4H, (Reported) 1 PUFF = 90 MCG Pnv95/Ferrous Fumarate/FA 1 Each Tablet, 1 EACH PO DAILY, (Reported) Prednisone 20 Mg Tab, 40 MG PO DAILY Prescribed by: KEI CORBIN on 04/22/17 0059 Prednisone 10 Mg Tab, 40 MG PO DAILY Prescribed by: BRYN ORDAZ on 03/19/18 2228 Patient Home Medication List Home Medication List Reviewed: Yes OB - History Hx of Present Care: Yes Ultrasounds: Normal mid trimester US Obstetrical Complications: Gestational Diabetes Medical Complications: None Information Induced Hypertension: No Maternal Gestational Diabetes: No Hemorrhage: No Obstetrical History Hx : 4 Hx Para: 3 Hx # Term Pregnancies: 3 Hx # Pregnancies: 0 Number of Living Children: 3 Hx Termination: No Hx Multiple Gestation: No Hx Ectopic : No Hx Stillbirth: No Hx Complication: No Hx Induced Hypertens: No Hx Maternal Gestational Diabet: No Hx Hemorrhage: No Delivery History Hx Dystocia: No Hx Large For Gestational Age I: No Hx Small for Gestational Age I: No Hx Section: No Hx Vaginal Delivery Post C-Sec: No Hx Blood Disorders: No Adverse Rxn to Tranfusion: No Patient Past Medical History PMHx: Asthma SurgHx: None Social History/Family History HIV/AIDS: No Recent Infectious Disease Expo: No Sexually Transmitted Disease: No Alcohol Use: Denies Use Recreational Drug Use: No Smoking Cessation: Never smoker Immunizations Hepatitis A: Yes Hepatitis B: Yes Tetanus Booster (TDap): Less than 5yrs Rubella: immune RPR/VDRL: Negative GBS Status: Negative HBsAG: Negative OB - Admission Exam Physical Exam Vitals: Vital Signs 07/04/18 07/04/18 13:25 15:10 Temp 98.3 Pulse 78 Resp 18 B/P (MAP) 136/63 (87) O2 Delivery Room Air Labs Laboratory Tests Test 07/04/18 06:00 07/04/18 06:16 07/04/18 06:33 Range/Units Urine Color YELLOW Urine Clarity CLEAR Urine pH 7 5-9 Urine Specific [place] 1.010 L 1.016-1.022 Urine Protein NEGATIVE NEGATIVE Urine Glucose (UA) NEGATIVE NEGATIVE Urine Ketones NEGATIVE NEGATIVE Urine Nitrite NEGATIVE NEGATIVE Urine Bilirubin NEGATIVE NEGATIVE Urine Urobilinogen NORMAL NORMAL MG/DL Urine Leukocyte Esterase NEGATIVE NEGATIVE Urine RBC (Auto) 1+ H NEGATIVE Urine RBC RARE /HPF Urine WBC RARE /HPF Urine Squamous Epithelial Cells 5-10 /HPF Urine Crystals NONE /LPF Urine Bacteria FEW H /HPF Urine Casts NONE /LPF Urine Mucus NEGATIVE /LPF Urine Culture Indicated NO White Blood Count 8.3 4.3-11.0 10^3/uL Red Blood Count 4.54 4.35-5.85 10^6/uL Hemoglobin 12.6 11.5-16.0 G/DL Hematocrit 37 35-52 % Mean Corpuscular Volume 82 80-99 FL Mean Corpuscular Hemoglobin 28 25-34 PG Mean Corpuscular Hemoglobin Concent 34 32-36 G/DL Red Cell Distribution Width 13.0 10.0-14.5 % Platelet Count 212 130-400 10^3/uL Mean Platelet Volume 11.3 H 7.4-10.4 FL Neutrophils (%) (Auto) 73 42-75 % Lymphocytes (%) (Auto) 19 12-44 % Monocytes (%) (Auto) 5 0-12 % Eosinophils (%) (Auto) 3 0-10 % Basophils (%) (Auto) 0 0-10 % Neutrophils # (Auto) 6.0 1.8-7.8 X 10^3 Lymphocytes # (Auto) 1.6 1.0-4.0 X 10^3 Monocytes # (Auto) 0.4 0.0-1.0 X 10^3 Eosinophils # (Auto) 0.3 0.0-0.3 10^3/uL Basophils # (Auto) 0.0 0.0-0.1 10^3/uL Glucometer 88 70-110 MG/DL OB - Assessment/Plan/Diagnosis Assessment Assessment: induction of labor Admission Dx Admission Status: Inpatient Order (span 2 midnights) Reason for Inpatient Admission: Induction of labor Plan Plan: Induction Induction Method: per Pitocin Protocol Copy Copies To 1: SUNDAY DIANA MD, HOLLY R MD 07/04/18 4:49pm: OB - Chief Complaint & HPI Date/Time Time Seen by Provider: 14:50 Chief Complaint/History OB-Reason for Admission/Chief: Obstetrical Complication (GDM) Hx : 4 Hx Para: 3 Allergies and Home Medications Allergies Coded Allergies: No Known Drug Allergies (Unverified , 05/18/16) Home Medications Albuterol Sulfate 1 Puff Puff, 2 PUFF IH Q4H, (Reported) 1 PUFF = 90 MCG Pnv95/Ferrous Fumarate/FA 1 Each Tablet, 1 EACH PO DAILY, (Reported) Prednisone 20 Mg Tab, 40 MG PO DAILY Prescribed by: KEI CORBIN on 04/22/17 0059 Prednisone 10 Mg Tab, 40 MG PO DAILY Prescribed by: BRYN ORDAZ on 03/19/18 2228 Patient Home Medication List Home Medication List Reviewed: Yes OB - History Hx of Present Care: Yes Ultrasounds: Normal mid trimester US Obstetrical Complications: Gestational Diabetes Patient Past Medical History Asthma OB - Admission Exam Physical Exam Abdomen: Gravid Cervical Dilatation: 4cm Effacement: 50% Station: Ballotable Membranes: Intact Accelerations: Accelerations Present Contractions on Admission: 6-10 Minutes Apart Nazario Scoring Tool (Modified) Dilation (cm): 3-4cm (2) Effacement (%): 31-51% (1) Descent/Station: -3 (0) Cervix Consistency: Soft (2) Cervix Position: Middle/Mid-Position (1) Add 1 point for: Each previous vaginal delivery (1) (3) Nazario Score: 9 OB - Assessment/Plan/Diagnosis Assessment Assessment: induction of labor Admission Dx IOL Admission Status: Inpatient Order (span 2 midnights) Reason for Inpatient Admission: Labor Plan Plan: Induction Induction Method: per Pitocin Protocol Other Plan 33 yo @ 38.6 wga here for IOL for diet controlled GDM Plan - IOL with Pitocin - GBS neg - GDM: Monitor hourly blood sugars - Expectant management LEÓN GARCIA MEDICAL STUDENT Jul 04, 2018 4:15 pm SUNDAY DIANA MD Jul 04, 2018 4:49 pm
[2018-07-05] VITALS (35 sets, daily range): BP systolic 95–135; BP diastolic 44–88
[2018-07-05] MEDS: D5 LR IV SOLUTION 1,000 ML IV SCH (06:31)
--- NOTE | 2018-07-05 09:33 | Diagnostic Imaging Report ---
Indication: Malpresentation. There is a single live fetus in a vertex presentation. heart rate was recorded at 129 beats per minute. The placenta is fundal and to the right. The amniotic fluid index is 8.3 cm. No measurements were performed today. Impression: Vertex presentation. Dictated by: Dictated on workstation # [id number]
--- NOTE | 2018-07-05 10:58 | Labor Progress Note ---
Labor Progress Note Labor Progress Note Date Seen by Provider: Jul 05, 2018 Time Seen by Provider: 10:40 Subjective: Pt states that she can feel contractions. No LOF or vaginal bleeding. States that she got some sleep last night. Objective: Cervical exam: /3 Presentation: Vertex Cat I strip Assessment/Plan: Nancy Rubio is a (33 /Para 4 / 3,Gestational Age (wks)39.0 here for IOL for GDM AROM clear Scalp electrode placed Continue pitocin protocol Vitals - Labs Vital Signs - I&O Vital Signs Date Time Temp Pulse Resp B/P (MAP) Pulse Ox O2 Delivery O2 Flow Rate FiO2 07/05/18 09:45 Room Air 07/05/18 09:30 68 18 118/65 (82) Room Air 07/05/18 09:15 74 18 117/61 (79) Room Air 07/05/18 09:00 65 18 120/58 (78) Room Air 07/05/18 08:45 70 18 118/58 (78) Room Air 07/05/18 08:30 66 18 120/59 (79) Room Air 07/05/18 08:15 77 18 127/59 (81) Room Air 07/05/18 08:00 97.9 76 18 120/74 (89) Room Air 07/05/18 07:45 63 18 110/65 (80) Room Air 07/05/18 07:30 80 18 110/59 (76) Room Air 07/05/18 07:15 65 18 115/62 (79) Room Air 07/05/18 07:00 67 18 104/62 (76) Room Air 07/05/18 06:45 55 18 105/63 (77) Room Air 07/05/18 06:30 97.8 71 18 101/58 (72) Room Air 07/05/18 05:25 71 18 106/50 (68) Room Air 07/05/18 04:30 67 18 101/59 (73) Room Air 07/05/18 03:30 97.5 71 18 95/51 (66) Room Air 07/05/18 02:30 71 18 98/55 (69) Room Air 07/05/18 01:30 81 18 108/60 (76) Room Air 07/05/18 00:30 84 18 95/50 (65) Room Air 07/04/18 23:25 68 18 120/58 (78) Room Air 07/04/18 23:10 98.4 80 18 108/61 (77) Room Air 07/04/18 22:55 79 18 113/62 (79) Room Air 07/04/18 22:40 77 18 113/58 (76) Room Air 07/04/18 22:25 78 18 119/65 (83) Room Air 07/04/18 22:10 80 18 114/59 (77) Room Air 07/04/18 21:55 97 18 112/58 (76) Room Air 07/04/18 21:40 78 18 112/61 (78) Room Air 07/04/18 21:25 75 18 119/64 (82) Room Air 07/04/18 21:10 82 18 107/75 (86) Room Air 07/04/18 20:55 86 18 118/67 (84) Room Air 07/04/18 20:40 83 18 114/67 (83) Room Air 07/04/18 20:25 77 18 115/61 (79) Room Air 07/04/18 20:05 82 18 111/62 (78) Room Air 07/04/18 19:55 85 18 113/59 (77) Room Air 07/04/18 19:40 98.3 83 18 106/58 (74) Room Air 07/04/18 19:25 88 18 108/60 (76) Room Air 07/04/18 19:10 72 18 110/60 (77) Room Air 07/04/18 18:55 78 18 116/62 (80) Room Air 07/04/18 18:40 74 18 138/59 (85) Room Air 07/04/18 18:25 72 18 108/66 (80) Room Air 07/04/18 18:10 72 18 108/66 (80) Room Air 07/04/18 17:55 81 18 112/62 (79) Room Air 07/04/18 17:40 68 18 109/58 (75) Room Air 07/04/18 17:25 98.6 88 18 102/55 (71) Room Air 07/04/18 17:10 92 18 100/54 (69) Room Air 07/04/18 16:55 78 18 97/55 (69) Room Air 07/04/18 16:40 90 18 97/56 (70) Room Air 07/04/18 16:25 83 18 99/54 (69) Room Air 07/04/18 16:10 81 18 99/54 (69) Room Air 07/04/18 15:50 99.5 93 18 100/58 (72) Room Air 07/04/18 15:25 71 18 119/63 (81) Room Air 07/04/18 15:10 78 18 136/63 (87) Room Air 07/04/18 14:55 78 18 136/65 (88) Room Air 07/04/18 14:40 76 18 140/75 (96) Room Air 07/04/18 14:25 71 18 106/59 (75) Room Air 07/04/18 14:10 76 18 114/63 (80) Room Air 07/04/18 13:55 76 18 108/58 (75) Room Air 07/04/18 13:40 78 18 129/60 (83) Room Air 07/04/18 13:25 98.3 82 18 111/59 (76) Room Air 07/04/18 13:10 81 18 111/59 (76) Room Air 07/04/18 12:55 83 18 116/64 (81) Room Air 07/04/18 12:40 80 18 110/65 (80) Room Air 07/04/18 12:25 74 18 112/71 (85) Room Air 07/04/18 12:10 83 18 103/59 (74) Room Air 07/04/18 11:55 75 18 126/74 (91) Room Air 07/04/18 11:40 81 18 125/74 (91) Room Air 07/04/18 11:25 86 18 120/67 (84) Room Air 07/04/18 11:10 76 18 128/68 (88) Room Air I & O 07/05/18 07:00 Intake Total 3000 ml Balance 3000 ml Labs Laboratory Tests 07/04/18 19:00: Glucometer 95 07/05/18 06:36: Glucometer 96 SUNDAY DIANA MD Jul 05, 2018 10:58
[2018-07-05] MEDS ORDERED: BUTORPHANOL INJ 2 MG/ML (STADOL) VIAL IV ONE (11:45)
[2018-07-05] MEDS ORDERED: LIDOCAINE/EPI 2% 1:200,00 (XYLOCAINE) 10 ML VIAL ONE (12:34)
[2018-07-05] MEDS ORDERED: OXYTOCIN/NORMAL SALINE 500 ML IV SCH (12:52)
--- NOTE | 2018-07-05 12:57 | OB Labor & Delivery Record ---
Vag Delivery Note Vag Delivery Note Date of Delivery: 07/05/18 Preoperative Diagnosis: Nancy Rubio is a (33 /Para 4 / 3, Gestational Age (wks)39.0 here for IOL for GDM diet controlled Postoperative Diagnosis: Same Surgeon: SUNDAY DIANA [employer] Consultant: None Anesthesia: None Delivery Type: @ 1230 Findings: Term female Viable female infant, apgars 9/9, weight 3210 grams 7#1 Lacerations: 1st degree perineal laceration Intact placenta with 3 vessel cord. No nuchal cord, body cord or shoulder dystocia Estimated Blood Loss: 125 ml Complications: None Condition: Stable Description of Procedure: The patient is a 33 yo G4 now P4 who presented for IOL 2/2 diet controlled GDM. She was admitted and informed consent was obtained. Her labor course was unremarkable. She progressed to complete dilatation and began to push. She was then set up for delivery. The infant's head was delivered atraumatically in the MIRACLE position. The shoulders and remainder of the infant's body were then delivered without difficulty. Upon delivery, the head was held below the level of the perineum and the mouth and nares were bulb suctioned. The cord was doubly clamped and cut by FOB and the infant was placed on maternal abdomen and attended to by pediatric staff. An intact placenta with 3- vessel cord delivered via Jonathan and there was found to be minimal bleeding.~ Vigorous fundal massage was performed and the fundus was found to be firm. IV oxytocin was given. Examination of the vagina and perineum revealed a 1st degree perineal laceration repaired in the usual fashion with 3-0 Reped suture. Following the repair, sponge, instrument and needle counts were correct. Mom and baby were both in stable condition in the labor suite. Vitals - Labs Vital Signs - I&O Vital Signs Date Time Temp Pulse Resp B/P (MAP) Pulse Ox O2 Delivery O2 Flow Rate FiO2 07/05/18 11:00 98.7 69 18 130/69 (89) Room Air 07/05/18 10:45 76 18 123/65 (84) Room Air 07/05/18 10:30 75 18 129/67 (87) Room Air 07/05/18 10:15 70 18 114/65 (81) Room Air 07/05/18 10:00 18 Room Air 07/05/18 09:45 Room Air 07/05/18 09:30 68 18 118/65 (82) Room Air 07/05/18 09:15 74 18 117/61 (79) Room Air 07/05/18 09:00 65 18 120/58 (78) Room Air 07/05/18 08:45 70 18 118/58 (78) Room Air 07/05/18 08:30 66 18 120/59 (79) Room Air 07/05/18 08:15 77 18 127/59 (81) Room Air 07/05/18 08:00 97.9 76 18 120/74 (89) Room Air 07/05/18 07:45 63 18 110/65 (80) Room Air 07/05/18 07:30 80 18 110/59 (76) Room Air 07/05/18 07:15 65 18 115/62 (79) Room Air 07/05/18 07:00 67 18 104/62 (76) Room Air 07/05/18 06:45 55 18 105/63 (77) Room Air 07/05/18 06:30 97.8 71 18 101/58 (72) Room Air 07/05/18 05:25 71 18 106/50 (68) Room Air 07/05/18 04:30 67 18 101/59 (73) Room Air 07/05/18 03:30 97.5 71 18 95/51 (66) Room Air 07/05/18 02:30 71 18 98/55 (69) Room Air 07/05/18 01:30 81 18 108/60 (76) Room Air 07/05/18 00:30 84 18 95/50 (65) Room Air 07/04/18 23:25 68 18 120/58 (78) Room Air 07/04/18 23:10 98.4 80 18 108/61 (77) Room Air 07/04/18 22:55 79 18 113/62 (79) Room Air 07/04/18 22:40 77 18 113/58 (76) Room Air 07/04/18 22:25 78 18 119/65 (83) Room Air 07/04/18 22:10 80 18 114/59 (77) Room Air 07/04/18 21:55 97 18 112/58 (76) Room Air 07/04/18 21:40 78 18 112/61 (78) Room Air 07/04/18 21:25 75 18 119/64 (82) Room Air 07/04/18 21:10 82 18 107/75 (86) Room Air 07/04/18 20:55 86 18 118/67 (84) Room Air 07/04/18 20:40 83 18 114/67 (83) Room Air 07/04/18 20:25 77 18 115/61 (79) Room Air 07/04/18 20:05 82 18 111/62 (78) Room Air 07/04/18 19:55 85 18 113/59 (77) Room Air 07/04/18 19:40 98.3 83 18 106/58 (74) Room Air 07/04/18 19:25 88 18 108/60 (76) Room Air 07/04/18 19:10 72 18 110/60 (77) Room Air 07/04/18 18:55 78 18 116/62 (80) Room Air 07/04/18 18:40 74 18 138/59 (85) Room Air 07/04/18 18:25 72 18 108/66 (80) Room Air 07/04/18 18:10 72 18 108/66 (80) Room Air 07/04/18 17:55 81 18 112/62 (79) Room Air 07/04/18 17:40 68 18 109/58 (75) Room Air 07/04/18 17:25 98.6 88 18 102/55 (71) Room Air 07/04/18 17:10 92 18 100/54 (69) Room Air 07/04/18 16:55 78 18 97/55 (69) Room Air 07/04/18 16:40 90 18 97/56 (70) Room Air 07/04/18 16:25 83 18 99/54 (69) Room Air 07/04/18 16:10 81 18 99/54 (69) Room Air 07/04/18 15:50 99.5 93 18 100/58 (72) Room Air 07/04/18 15:25 71 18 119/63 (81) Room Air 07/04/18 15:10 78 18 136/63 (87) Room Air 07/04/18 14:55 78 18 136/65 (88) Room Air 07/04/18 14:40 76 18 140/75 (96) Room Air 07/04/18 14:25 71 18 106/59 (75) Room Air 07/04/18 14:10 76 18 114/63 (80) Room Air 07/04/18 13:55 76 18 108/58 (75) Room Air 07/04/18 13:40 78 18 129/60 (83) Room Air 07/04/18 13:25 98.3 82 18 111/59 (76) Room Air 07/04/18 13:10 81 18 111/59 (76) Room Air 07/04/18 12:55 83 18 116/64 (81) Room Air I & O 07/05/18 07:00 Intake Total 3000 ml Balance 3000 ml Labs Laboratory Tests 07/04/18 19:00: Glucometer 95 07/05/18 06:36: Glucometer 96 SUNDAY DIANA MD Jul 05, 2018 12:57
[2018-07-05] MEDS: CATHETER FLUSH 10 ML SYR IV SCH (13:00)
[2018-07-05] MEDS ORDERED: BENZOCAINE/MENTHOL (DERMOPLAST) 56 ML CAN TP PRN (13:00)
[2018-07-05] MEDS ORDERED: WITCH HAZEL(TUCKS) 40 EA JAR TOP PRN (13:00)
[2018-07-05] MEDS: IBUPROFEN 600 MG (MOTRIN) TAB PO SCH ×2 (13:58→19:53)
[2018-07-05] MEDS ORDERED: CATHETER FLUSH 10 ML SYR IV SCH (14:00)
[2018-07-06 00:05] VITALS: BP 109/61
[2018-07-06] MEDS: IBUPROFEN 600 MG (MOTRIN) TAB PO SCH ×4 (02:09→21:48)
[2018-07-06 03:59] VITALS: BP 80/50
[2018-07-06 05:32] LABS: BASOPHILS % (AUTO) 0 % (0-10); EOSINOPHILS # (AUTO) 0.2 10^3/uL (0.0-0.3); EOSINOPHILS % (AUTO) 1 % (0-10); HEMATOCRIT 34 % (35-52); HEMOGLOBIN 11.4 G/DL (11.5-16.0); LYMPHOCYTES # (AUTO) 2.1 X 10^3 (1.0-4.0); LYMPHOCYTES % (AUTO) 20 % (12-44); MEAN CORPUSCULAR HEMOGLOBIN 28 PG (25-34); MEAN CORPUSCULAR HGB CONC 33 G/DL (32-36); MEAN CORPUSCULAR VOLUME 83 FL (80-99); MEAN PLATELET VOLUME 11.1 FL (7.4-10.4); MONOCYTES # (AUTO) 0.6 X 10^3 (0.0-1.0); MONOCYTES % (AUTO) 5 % (0-12); NEUTROPHILS # (AUTO) 7.9 X 10^3 (1.8-7.8); NEUTROPHILS % (AUTO) 74 % (42-75); PLATELET COUNT 206 10^3/uL (130-400); RED BLOOD COUNT 4.12 10^6/uL (4.35-5.85); WHITE BLOOD COUNT 10.8 10^3/uL (4.3-11.0)
[2018-07-06 09:00] VITALS: BP 100/61
[2018-07-06 12:03] VITALS: BP 101/64
[2018-07-06 15:14] VITALS: BP 100/60
--- NOTE | 2018-07-06 16:17 | Progress Note (SOAP) ---
Subjective Subjective/Events-last exam Doing well. . No concerns. Review of Systems Date Seen by Provider: Jul 06, 2018 Time Seen by Provider: 09:15 Objective Exam Last Set of Vital Signs Vital Signs Date Time Temp Pulse Resp B/P (MAP) Pulse Ox O2 Delivery O2 Flow Rate FiO2 07/06/18 15:14 96.9 78 14 100/60 (73) 97 Room Air Capillary Refill : I&O Intake and Output 07/06/18 00:00 Intake Total 2850 ml Balance 2850 ml Intake IV Total 2850 ml General: Alert, Oriented X3, Cooperative Psych/Mental Status: Mood NL Results/Procedures Lab Laboratory Tests 07/06/18 05:10: White Blood Count 10.8, Red Blood Count 4.12L, Hemoglobin 11.4L, Hematocrit 34L , Mean Corpuscular Volume 83, Mean Corpuscular Hemoglobin 28, Mean Corpuscular Hemoglobin Concent 33, Red Cell Distribution Width 13.0, Platelet Count 206, Mean Platelet Volume 11.1H, Neutrophils (%) (Auto) 74, Lymphocytes (%) (Auto) 20 , Monocytes (%) (Auto) 5, Eosinophils (%) (Auto) 1, Basophils (%) (Auto) 0, Neutrophils # (Auto) 7.9H, Lymphocytes # (Auto) 2.1, Monocytes # (Auto) 0.6, Eosinophils # (Auto) 0.2, Basophils # (Auto) 0.0 Assessment/Plan Assessment/Plan Assessment & Plan 1. PPD#1 s/p on 07/05/18 2. 1st degree laceration 3. diet controlled GDM Routine pp care. Anticipate DC home tomorrow. Clinical Quality Measures DVT/VTE Risk/Contraindication: Risk Factor Score Per Nursin RFS Level Per Nursing on Admit: 1=Low/No VTE PPX JAMES MASSEY DO Jul 06, 2018 16:17
[2018-07-06 21:00] VITALS: BP 102/59
[2018-07-07 03:33] VITALS: BP 104/59
[2018-07-07] MEDS: IBUPROFEN 600 MG (MOTRIN) TAB PO SCH ×2 (03:33→09:08)
[2018-07-07 09:00] VITALS: BP 104/67
[2018-07-07] MEDS ORDERED: IBUP-844 PO (11:55)
--- NOTE | 2018-07-07 11:56 | Discharge Instructions ---
Discharge Inst-Women's Serv Depart Medications New, Converted or Re-Newed RX: Other (over the counter) New Medications: Ibuprofen (Ibu) 600 Mg Tablet 600 MG PO Q6H for Cramps, #90 TAB 0 Refills Continued Medications: Albuterol Sulfate (Proair Hfa) 1 Puff Puff 2 PUFF IH Q4H, PUFF 1 PUFF = 90 MCG Beclomethasone Dipropionate (Qvar) 8.7 Gm Aer.w.adap 8.7 GM IH, GM Fexofenadine HCl (Fexofenadine HCl) 180 Mg Tablet 180 MG PO, TAB Pnv95/Ferrous Fumarate/FA ( Caplet) 1 Each Tablet 1 EACH PO DAILY, TAB Follow Up/Instructions Goal/Follow Up: Follow-up with Dr. Tong in 6 weeks Activity Activity: Activity as Tolerated NO SMOKING: NO SMOKING Nothing Inside Vagina: No Douching, No [place]win, No Tampons Diet Discharge Diet: No Restrictions Symptoms to Report to : Bleeding Excessive, Pain Increased, Fever Over 101 Degrees F, Vaginal Bleeding Increase, Vaginal Discharge Foul, Shortness of Breath For Any Problems or Questions: Contact Your Physician JAMES MASSEY DO Jul 07, 2018 11:56
[2018-07-07 14:00] VITALS: BP 104/67
--- NOTE | 2018-07-07 15:47 | Discharge Summary ---
Diagnosis/Chief Complaint Date of Admission Jul 04, 2018 at 05:36 Date of Discharge Jul 07, 2018 Admission Diagnosis Admission Diagnosis see H&P Discharge Diagnosis 1. PPD#2 s/p on 07/05/18 2. 1st degree laceration 3. diet controlled GDM Discharge Summary-OBS Procedures None. Discharge Physical Examination Allergies: Coded Allergies: No Known Drug Allergies (Unverified , 05/18/16) Vitals & I&Os Vital Sign - Last 12Hours Date Time Temp Pulse Resp B/P (MAP) Pulse Ox O2 Delivery O2 Flow Rate FiO2 07/07/18 09:00 97.7 76 18 104/67 (79) 96 Room Air General Appearance: Alert, Oriented X3, Cooperative Psych/Mental Status: Mood NL Hospital Course Routine care Discharge Instructions to patient/family Please see electronic discharge instructions given to patient. Discharge Medications Reviewed and agree with Discharge Medication list on patient's Discharge Instruction sheet Clinical Quality Measures DVT/VTE Risk/Contraindication: Risk Factor Score Per Nursin RFS Level Per Nursing on Admit: 1=Low/No VTE PPX JAMES MASSEY DO Jul 07, 2018 15:47
== END 2018-07-07 14:00 | disposition home or self-care (01) | DRG 775 ==
LOC: LDRP 05:36 → WS 07-05 15:07
PROVIDERS: ADMIT Family Medicine; ATTEND Family Medicine
PROC: 10E0XZZ Delivery of Products of Conception, External Approach (ICD-10-PCS; principal; 2018-07-05)
PROC: 0HQ9XZZ Repair Perineum Skin, External Approach (ICD-10-PCS; 2018-07-05)
DX: O24.410 Gestational diabetes mellitus in pregnancy, diet controlled (principal); O70.0 First degree perineal laceration during delivery; O99.513 Diseases of the respiratory system complicating pregnancy, third trimester; J45.909 Unspecified asthma, uncomplicated; Z3A.39 39 weeks gestation of pregnancy; Z37.0 Single live birth
CPT/HCPCS: 36415; 76815; 81000; 82962; 85025; 86850; 86900; 86901